=== PATIENT | male | born 1995 | race Caucasian/White ===

== ENCOUNTER 2020-02-07 16:48 | Emergency (ER) | payer BC ==
[2020-02-07 17:40] LABS: Absolute Lymphocytes (CBC) 1.3 K/uL (0.7-4.9); Basophils % 0.2 % (0-1.3); Hematocrit 43.9 % (39.6-49.0); Lymphocytes % 19.4 % (15.3-44.8); MPV 9.1 fL (7.6-11.3); RBC Red Blood Cell Count 4.87 M/uL (4.33-5.43)
[2020-02-07] MEDS ORDERED: ONDANSETRON 4 MG/2 ML VIAL ONE (17:44)
[2020-02-07] MEDS ORDERED: CIPROFLOXACIN 400mg IV 400 MG/200 ML BAG IV ONE (17:44)
[2020-02-07] MEDS ORDERED: NA CHLORIDE 0.9% 2,000 ML ONE (17:44)
[2020-02-07] MEDS ORDERED: METRONIDAZOLE 500mg IVPB 500 MG/100 ML BAG IV ONE (17:44)
[2020-02-07] MEDS ORDERED: MORPHINE 4 MG/ML SYR ONE ×2 (17:44→19:39)
[2020-02-07 17:58] LABS: Albumin 4.3 g/dL (3.4-5.0); Bilirubin Direct 0.2 mg/dL (0-0.2); Bilirubin Total 0.7 mg/dL (0.2-1.0); Potassium 3.9 mmol/L (3.5-5.1); Protein, Total 7.4 g/dL (6.4-8.2)
--- NOTE | 2020-02-07 19:26 | RAD REPORT ---
EXAM DESCRIPTION: CT - Abdomen Pelvis W Contrast - 02/07/2020 7:00 pm CLINICAL HISTORY: ABD PAINlower abdominal pain, bloody stool was COMPARISON: No comparisons TECHNIQUE: Biphasic, helical CT imaging of the abdomen and pelvis was performed following 100 ml non -ionic IV contrast. Oral contrast was given. All CT scans are performed using dose optimization technique as appropriate and may include automated exposure control or mA/KV adjustment according to patient size. FINDINGS: No suspicious findings in the lung bases. The liver, spleen, and pancreas show no suspicious findings. Gallbladder and biliary tree are also wi thout suspicious finding. Symmetric renal function is seen with no hydronephrosis or suspicious renal mass. No pyelonephritis o r acute parenchymal process. No bladder abnormalities. No adrenal abnormalities. No dilated bowel loops or bowel wall thickening. Appendix is not well visualized. No indirect evidenc e for appendicitis. Small mesenteric lymph nodes are present. Buchanan a left side colon are mildly prom inent but mostly decompressed which limits assessment. Mucosal level colitis is not excluded. No free air, free fluid or inflammatory stranding. No hernia, mass or bulky lymphadenopathy. No suspicious bony findings. IMPRESSION: No direct or indirect evidence for appendicitis. No surgically emergent findings identif iable. Small mesenteric lymph nodes are present which are nonspecific and could indicate mesenteric adenitis or enteritis. Also, buchanan of the left side colon are mildly prominent. This is probably due to decompressed state. Mild mucosal level colitis or inflammatory bowel changes cannot be excluded. No pyelonephritis or acute abnormality.
--- NOTE | 2020-02-07 19:48 | EDPHYS ---
Physician Documentation [facility] Name: Ari Moody Age: 24 yrs Sex: Male : 1995 Arrival Date: 02/07/2020 Time: 16:52 Bed 13 Private MD: ED Physician Deniz Jose HPI: 02/06 17:22 This 24 yrs old Male presents to ER via Ambulatory with complaints of kadeem Abdominal Pain, Bloody Stools. 17:22 The patient presents with abdominal pain in the lower abdomen. Onset: The kadeem symptoms/episode began/occurred this morning, today. The patient presents to the emergency department with rectal bleeding, a moderate amount. Onset: The symptoms/episode began/occurred just prior to arrival, this morning. Abdominal pain: described as crampy, dull, located in the right lower quadrant and left lower quadrant. Modifying factors: The symptoms are alleviated by remaining still, the symptoms are aggravated by nothing. Associated signs and symptoms: The patient has no apparent associated signs or symptoms. Historical: - Allergies: 17:02 No Known Allergies; ss - Home Meds: 17:02 None [Active]; ss - PMHx: 17:02 None; ss - PSHx: 17:02 None; ss - Immunization history:: Adult Immunizations up to date. - Social history:: Smoking status: Patient denies any tobacco usage or history of. - Family history:: not pertinent. ROS: 17:22 Constitutional: Negative for fever, chills, and weight loss, Eyes: Negative for injury, kadeem pain, redness, and discharge, ENT: Negative for injury, pain, and discharge, Neck: Negative for injury, pain, and swelling, Cardiovascular: Negative for chest pain, palpitations, and edema, Respiratory: Negative for shortness of breath, cough, wheezing, and pleuritic chest pain, Back: Negative for injury and pain, : Negative for injury, bleeding, discharge, and swelling, MS/Extremity: Negative for injury and deformity, Skin: Negative for injury, rash, and discoloration, Neuro: Negative for headache, weakness, numbness, tingling, and seizure, Psych: Negative for depression, anxiety, suicide ideation, homicidal ideation, and hallucinations, Allergy/Immunology: Negative for hives, rash, and allergies, Endocrine: Negative for neck swelling, polydipsia, polyuria, polyphagia, and marked weight changes, Hematologic/Lymphatic: Negative for swollen nodes, abnormal bleeding, and unusual bruising. 17:22 Abdomen/GI: Positive for abdominal pain, abdominal cramps, of the right lower quadrant and left lower quadrant. Exam: 17:22 Constitutional: This is a well developed, well nourished patient who is awake, alert, kadeem and in no acute distress. Head/Face: Normocephalic, atraumatic. Eyes: Pupils equal round and reactive to light, extra-ocular motions intact. Lids and lashes normal. Conjunctiva and sclera are non-icteric and not injected. Cornea within normal limits. Periorbital areas with no swelling, redness, or edema. ENT: Nares patent. No nasal discharge, no septal abnormalities noted. Tympanic membranes are normal and external auditory canals are clear. Oropharynx with no redness, swelling, or masses, exudates, or evidence of obstruction, uvula midline. Mucous membranes moist. Neck: Trachea midline, no thyromegaly or masses palpated, and no cervical lymphadenopathy. Supple, full range of motion without nuchal rigidity, or vertebral point tenderness. No Meningismus. Chest/axilla: Normal chest wall appearance and motion. Nontender with no deformity. No lesions are appreciated. Cardiovascular: Regular rate and rhythm with a normal S1 and S2. No gallops, murmurs, or rubs. Normal PMI, no JVD. No pulse deficits. Respiratory: Lungs have equal breath sounds bilaterally, clear to auscultation and percussion. No rales, rhonchi or wheezes noted. No increased work of breathing, no retractions or nasal flaring. Back: No spinal tenderness. No costovertebral tenderness. Full range of motion. Male : Normal genitalia with no discharge or lesions. Skin: Warm, dry with normal turgor. Normal color with no rashes, no lesions, and no evidence of cellulitis. MS/ Extremity: Pulses equal, no cyanosis. Neurovascular intact. Full, normal range of motion. Neuro: Awake and alert, GCS 15, oriented to person, place, time, and situation. Cranial nerves II-XII grossly intact. Motor strength 5/5 in all extremities. Sensory grossly intact. Cerebellar exam normal. Normal gait. Psych: Awake, alert, with orientation to person, place and time. Behavior, mood, and affect are within normal limits. 17:22 Abdomen/GI: Inspection: abdomen appears normal, Bowel sounds: normal, active, Palpation: mild abdominal tenderness, moderate abdominal tenderness, in the right lower quadrant and left lower quadrant, Liver: no appreciated palpable abnormalities, Hernia: not appreciated. Vital Signs: 17:00 BP 127 / 84; Pulse 81; Resp 15; Temp 98.2(TE); Pulse Ox 100% on R/A; Weight 70.31 kg; ss Height 5 ft. 7 in. (170.18 cm); Pain 7/10; 18:00 BP 128 / 72; Pulse 56; Resp 17 S; Pulse Ox 100% on R/A; ca1 19:31 BP 127 / 69; Pulse 54; Resp 16; Pulse Ox 100% on R/A; Pain 8/10; aa1 17:00 Body Mass Index 24.28 (70.31 kg, 170.18 cm) ss MDM: 16:56 Patient medically screened. [facility] 17:24 Data reviewed: vital signs, nurses notes, lab test result(s), radiologic studies, CT kadeem scan. 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 19:51 ED course: PMPAware reviewed. Last given codeine on 02/10/2019. pm1 02/06 17:22 Order name: Basic Metabolic Panel; Complete Time: 18:27 kadeem 02/06 17:22 Order name: CBC with Diff; Complete Time: 17:53 kadeem 02/06 17:22 Order name: Creatinine for Radiology; Complete Time: 18:27 kadeem 02/06 17:22 Order name: Hepatic Function; Complete Time: 18:27 kadeem 02/06 17:22 Order name: Lipase; Complete Time: 18:27 kadeem 02/06 17:22 Order name: Type And Screen; Complete Time: 18:27 kadeem 02/06 17:22 Order name: CT Abd/Pelvis - PO and IV Contrast; Complete Time: 19:30 kadeem 02/06 17:22 Order name: IV Saline Lock; Complete Time: 17:37 kadeem 02/06 17:22 Order name: Labs collected and sent; Complete Time: 17:37 kadeem Administered Medications: 17:39 Drug: NS 0.9% 1000 ml Route: IV; Rate: 1 bolus; Site: right antecubital; ca1 18:35 Follow up: Response: No adverse reaction; IV Status: Completed infusion ca1 17:39 Drug: Zofran (Ondansetron) 4 mg Route: IVP; Site: right antecubital; ca1 18:36 Follow up: Response: No adverse reaction; Nausea is decreased ca1 17:41 Drug: morphine 4 mg {Note: RASS - 0.} Route: IVP; Site: right antecubital; ca1 18:35 Follow up: Response: No adverse reaction; Pain is decreased; RASS: Alert and Calm (0) ca1 17:45 Drug: Flagyl 500 mg Volume: 100 ml; Route: IVPB; Rate: 200 ml/hr; Infused Over: 30 ca1 mins; Site: right antecubital; 18:34 Drug: Cipro 400 mg Volume: 200 ml; Route: IVPB; Infused Over: 60 mins; Site: right ca1 antecubital; 19:34 Follow up: IV Status: Completed infusion; IV Intake: 200ml aa1 18:34 Drug: NS 0.9% 1000 ml Route: IV; Rate: 1 bolus; Site: right antecubital; ca1 19:30 Follow up: IV Status: Completed infusion; IV Intake: 1000ml aa1 19:15 Drug: NS 0.9% 1000 ml Route: IV; Rate: 125 ml/hr; Site: right antecubital; aa1 20:04 Follow up: IV Status: Completed infusion aa1 19:35 Drug: morphine 4 mg Route: IVP; Site: right antecubital; aa1 20:03 Follow up: Response: No adverse reaction; Pain is decreased; RASS: Alert and Calm (0) aa1 19:53 Drug: Bentyl 20 mg Route: PO; aa1 20:03 Follow up: Response: No adverse reaction; Medication administered at discharge. aa1 19:53 Drug: Rocephin 1 grams Route: IV; Rate: calculated rate; Site: right antecubital; aa1 20:02 Follow up: IV Status: Completed infusion; IV Intake: 10ml aa1 Disposition: 02/07 10:35 Co-signature as Attending Physician, Deniz Jose MD I agree with the assessment and kadeem plan of care. Disposition: 02/07/20 19:47 Discharged to Home. Impression: Unspecified abdominal pain, Colitis. - Condition is Stable. - Discharge Instructions: Abdominal Pain, Adult, Colitis. - Prescriptions for Bentyl 20 mg Oral Tablet - take 1 tablet by ORAL route every 6 hours As needed; 20 tablet. Cipro 500 mg Oral Tablet - take 1 tablet by ORAL route every 12 hours for 10 days; 20 tablet. Flagyl 500 mg Oral Tablet - take 1 tablet by ORAL route every 8 hours for 10 days; 30 tablet. Tylenol- Codeine #3 300-30 mg Oral Tablet - take 2 tablets by ORAL route every 6 hours As needed; 20 tablet. - Work release form, Medication Reconciliation Form, Thank You Letter, Antibiotic Education, Prescription Opioid Use form. - Follow up: Emergency Department; When: As needed; Reason: Worsening of condition. Follow up: Mei Lopez MD; When: 2 - 3 days; Reason: Recheck today's complaints, Continuance of care, Re-evaluation by your physician. - Problem is new. - Symptoms have improved. Signatures: Dispatcher [employer] Toshia Márquez RN RN aa1 Deniz Jose MD MD cha Smirch, Shelby, RN RN ss Dmitry Whitlock, [employer] pm1 Marito, Elyse RN RN ca1 Corrections: (The following items were deleted from the chart) 02/06 20:07 19:47 02/07/2020 19:47 Discharged to Home. Impression: Unspecified abdominal pain; aa1 Colitis. Condition is Stable. Forms are Medication Reconciliation Form, Thank You Letter, Antibiotic Education, Prescription Opioid Use. Follow up: Emergency Department; When: As needed; Reason: Worsening of condition. Follow up: Mei Lopez; When: 2 - 3 days; Reason: Recheck today's complaints, Continuance of care, Re-evaluation by your physician. Problem is new. Symptoms have improved. pm1
--- NOTE | 2020-02-07 19:48 | ER ---
Nurse's Notes [facility] Name: Ari Moody Age: 24 yrs Sex: Male : 1995 Arrival Date: 02/07/2020 Time: 16:52 Bed 13 Private MD: Diagnosis: Unspecified abdominal pain;Colitis Presentation: 02/06 17:00 Chief complaint: Patient states: lower abd pain and blood stools that began today. ss Coronavirus screen: The patient has NOT traveled to a country currently being monitored by the [facility] within the last 14 days. Proceed with normal triage procedures. Ebola Screen: Patient denies exposure to infectious person. Patient denies travel to an Ebola-affected area in the 21 days before illness onset. Initial Sepsis Screen: Does the patient meet any 2 criteria? No. Patient's initial sepsis screen is negative. Does the patient have a suspected source of infection? No. Patient's initial sepsis screen is negative. Risk Assessment: Do you want to hurt yourself or someone else? Patient reports no desire to harm self or others. 17:00 Method Of Arrival: Ambulatory ss 17:00 Acuity: GAYLE 3 ss Historical: - Allergies: 17:02 No Known Allergies; ss - Home Meds: 17:02 None [Active]; ss - PMHx: 17:02 None; ss - PSHx: 17:02 None; ss - Immunization history:: Adult Immunizations up to date. - Social history:: Smoking status: Patient denies any tobacco usage or history of. - Family history:: not pertinent. Screenin:25 Abuse screen: Denies threats or abuse. Denies injuries from another. Nutritional ca1 screening: No deficits noted. Tuberculosis screening: No symptoms or risk factors identified. Fall Risk IV access (20 points). Assessment: 17:25 General: Appears in no apparent distress. comfortable, Behavior is calm, cooperative, ca1 appropriate for age. Pain: Complains of pain in suprapubic area, right lower quadrant and left lower quadrant Pain does not radiate. Pain currently is 10 out of 10 on a pain scale. Pain began this morning Is intermittent. Neuro: Level of Consciousness is awake, alert, obeys commands, Oriented to person, place, time, situation, Appropriate for age. Cardiovascular: Heart tones S1 S2 present Capillary refill < 3 seconds Patient's skin is warm and dry. Respiratory: Airway is patent Respiratory effort is even, unlabored, Breath sounds are clear bilaterally. GI: Abdomen is flat, non-distended, Bowel sounds present X 4 quads. Abd is soft X 4 quads Abdomen is tender to palpation in suprapubic area, right lower quadrant and left lower quadrant Reports diarrhea, bloody stool, since this morning. : No signs and/or symptoms were reported regarding the genitourinary system. EENT: No signs and/or symptoms were reported regarding the EENT system. Derm: Skin is intact, is healthy with good turgor, Skin is pink, warm \T\ dry. Musculoskeletal: Circulation, motion, and sensation intact. Capillary refill < 3 seconds. 18:39 Reassessment: Patient appears in no apparent distress at this time. Patient and/or ca1 family updated on plan of care and expected duration. Pain level reassessed. Patient is alert, oriented x 3, equal unlabored respirations, skin warm/dry/pink. Pending CT. 19:31 Reassessment: Patient appears in no apparent distress at this time. Patient and/or aa1 family updated on plan of care and expected duration. Pain level reassessed. Patient is alert, oriented x 3, equal unlabored respirations, skin warm/dry/pink. Pt requesting more pain medication; MEM[employer] notified. 20:05 Reassessment: Patient appears in no apparent distress at this time. Patient is alert, aa1 oriented x 3, equal unlabored respirations, skin warm/dry/pink. Discussed d/c \T\ f/u instructions with pt; denies questions or concerns at this time. Ambulatory to lobby with steady gait Patient states feeling better. Patient states symptoms have improved. Vital Signs: 17:00 BP 127 / 84; Pulse 81; Resp 15; Temp 98.2(TE); Pulse Ox 100% on R/A; Weight 70.31 kg; ss Height 5 ft. 7 in. (170.18 cm); Pain 7/10; 18:00 BP 128 / 72; Pulse 56; Resp 17 S; Pulse Ox 100% on R/A; ca1 19:31 BP 127 / 69; Pulse 54; Resp 16; Pulse Ox 100% on R/A; Pain 8/10; aa1 17:00 Body Mass Index 24.28 (70.31 kg, 170.18 cm) ED Course: 16:52 Patient arrived in ED. mr 16:56 Deniz Jose MD is Attending Physician. kadeem 16:57 Liyah Fierro, RN is Primary Nurse. ph 17:01 Triage completed. ss 17:02 Arm band placed on. ss 17:25 Patient has correct armband on for positive identification. Placed in gown. Bed in low ca1 position. Call light in reach. Side rails up X 1. Pulse ox on. NIBP on. Warm blanket given. 17:31 No provider procedures requiring assistance completed. Initial lab(s) drawn, by or, ca1 sent to lab. Inserted saline lock: 18 gauge in right antecubital area, using aseptic technique. Blood collected. 19:00 CT completed. Patient tolerated procedure well. Patient moved back from CT. bq 19:00 CT Abd/Pelvis - PO and IV Contrast In Process Unspecified. EDMS 19:09 Dmitry Whitlock NP is PHCP. pm1 19:47 Mei Lopez MD is Referral Physician. pm1 20:05 IV discontinued, intact, bleeding controlled, No redness/swelling at site. Pressure aa1 dressing applied. Administered Medications: 17:39 Drug: NS 0.9% 1000 ml Route: IV; Rate: 1 bolus; Site: right antecubital; ca1 18:35 Follow up: Response: No adverse reaction; IV Status: Completed infusion ca1 17:39 Drug: Zofran (Ondansetron) 4 mg Route: IVP; Site: right antecubital; ca1 18:36 Follow up: Response: No adverse reaction; Nausea is decreased ca1 17:41 Drug: morphine 4 mg {Note: RASS - 0.} Route: IVP; Site: right antecubital; ca1 18:35 Follow up: Response: No adverse reaction; Pain is decreased; RASS: Alert and Calm (0) ca1 17:45 Drug: Flagyl 500 mg Volume: 100 ml; Route: IVPB; Rate: 200 ml/hr; Infused Over: 30 ca1 mins; Site: right antecubital; 18:34 Drug: Cipro 400 mg Volume: 200 ml; Route: IVPB; Infused Over: 60 mins; Site: right ca1 antecubital; 19:34 Follow up: IV Status: Completed infusion; IV Intake: 200ml aa1 18:34 Drug: NS 0.9% 1000 ml Route: IV; Rate: 1 bolus; Site: right antecubital; ca1 19:30 Follow up: IV Status: Completed infusion; IV Intake: 1000ml aa1 19:15 Drug: NS 0.9% 1000 ml Route: IV; Rate: 125 ml/hr; Site: right antecubital; aa1 20:04 Follow up: IV Status: Completed infusion aa1 19:35 Drug: morphine 4 mg Route: IVP; Site: right antecubital; aa1 20:03 Follow up: Response: No adverse reaction; Pain is decreased; RASS: Alert and Calm (0) aa1 19:53 Drug: Bentyl 20 mg Route: PO; aa1 20:03 Follow up: Response: No adverse reaction; Medication administered at discharge. aa1 19:53 Drug: Rocephin 1 grams Route: IV; Rate: calculated rate; Site: right antecubital; aa1 20:02 Follow up: IV Status: Completed infusion; IV Intake: 10ml aa1 Intake: 19:30 IV: 1000ml; Total: 1000ml. aa1 19:34 IV: 200ml; Total: 1200ml. aa1 20:02 IV: 10ml; Total: 1210ml. aa1 Outcome: 19:47 Discharge ordered by . pm1 20:05 Discharged to home ambulatory, with significant other. aa1 20:05 Condition: good 20:05 Discharge instructions given to patient, significant other, Instructed on discharge instructions, follow up and referral plans. medication usage, Demonstrated understanding of instructions, follow-up care, medications, Prescriptions given X 4. 20:07 Patient left the ED. aa1 Signatures: Dispatcher [employer] EDMS Toshia Fuentes RN RN aa1 Deniz Jose MD MD cha Rivera, Mary mr Tiffanie Thompson Shelby, RN RN Liyah Fierro RN RN ph Marinas, Patrick, [employer] pm1 Elyse Devi RN RN ca1
[2020-02-07] MEDS ORDERED: DICYCLOMINE HCL 10 MG CAP ONE (19:52)
[2020-02-07] MEDS ORDERED: CEFTRIAXONE/SWI 1gm 1 GM/10 ML SYR ONE (19:52)
[2020-02-07 20:39] VITALS: O2SAT 100
[2020-02-07 20:42] VITALS: BP 127/69
[2020-02-07 20:46] VITALS: TEMP 98.4
== END 2020-02-07 20:07 | disposition home or self-care (01) ==
LOC: ER 16:48
DX: K52.9 Noninfective gastroenteritis and colitis, unspecified (principal)
CPT/HCPCS: 96365; 96361; 85025; 80048; 36415; 86900; 86850; 86901; 80076; 83690; 74177; 96375; 99284; Q9967; J0696; J7030; J2405; J0744

== ENCOUNTER 2024-09-12 11:19 | Emergency (ER) | payer BC ==
[2024-09-12] MEDS ORDERED: ONDANSETRON 4 MG/2 ML VIAL ONE (11:54)
[2024-09-12] MEDS ORDERED: NA CHLORIDE 0.9% 1,000 ML ONE (11:54)
[2024-09-12] MEDS ORDERED: FAMOTIDINE 20 MG/2 ML VIAL IV ONE (11:54)
[2024-09-12 12:10] LABS: Specific Gravity 1.017 (1.005-1.030); Urine Bilirubin NEGATIVE (Negative); Urine Blood Negative (Negative); Urine Clarity Clear (Clear); Urine Color Light-Yellow (Yellow); Urine Glucose NEGATIVE (Negative); Urine Ketones NEGATIVE (Negative); Urine Microscopic Reflex YN NO UMIC; Urine Nitrite NEGATIVE (Negative); Urine Protein NEGATIVE (Negative); Urine Urobilinogen Normal (Normal)
[2024-09-12 12:10] LABS: Absolute Eosinophils 0.1 K/uL (0-0.5); Absolute Lymphocytes (CBC) 1.4 K/uL (0.7-4.9); Absolute Monocytes 0.4 K/uL (0.1-1.3); Absolute Neutrophil 2.8 K/uL (1.8-8.0); Basophils % 0.3 % (0-1.3); Eosinophils % 2.2 % (0-4.4); Hematocrit 41.7 % (39.6-49.0); Lymphocytes % 29.7 % (15.3-44.8); MCH 30.9 pg (27.0-35.0); MCHC 33.6 g/dL (32.0-36.0); MCV 91.8 fL (80-100); MPV 8.7 fL (7.6-11.3); Neutrophils % 58.8 % (41.7-73.7); Platelets 175 thou/uL (152-406); RBC Red Blood Cell Count 4.55 M/uL (4.33-5.43); Red Cell Distribution Width 13.2 % (12.1-15.2)
[2024-09-12 12:13] LABS: PT Prothrombin Time 12.4 SECONDS (9.4-12.5); Protime INR 1.11
[2024-09-12 12:26] LABS: Albumin 4.3 g/dL (3.4-5.0); Albumin/Globulin Ratio 1.3 (1.1-1.8); Anion Gap 6.7 mEq/L (5.0-15.0); Bilirubin Total 0.5 mg/dL (0.2-1.0); Globulin 3.2 g/dL (2.3-3.5); Potassium 3.7 mEq/L (3.5-5.1); Protein, Total 7.5 g/dL (6.4-8.2)
--- NOTE | 2024-09-12 13:24 | RAD REPORT ---
EXAMINATION: CT ABDOMEN AND PELVIS WITH CONTRAST CLINICAL INDICATION: Abdominal pain TECHNIQUE: CT abdomen and pelvis was performed, after the administration of 100 cc Isovue-300.. Sagit anu and coronal reconstructions were obtained. One or more of the following dose reduction techniques were used: Automated exposure control, adjustment of the mA and kV according to patient si ze, and iterative reconstruction. Unless otherwise specified, incidental findings do not require dedicated imaging follow-up. [id number]. Oral contrast was not given which limits evaluation of bowel and appendix. COMPARISON: 2019 FINDINGS: Liver, spleen, pancreas, adrenals and kidneys appear unremarkable No evidence of diverticulitis. The appendix is not seen. No stranding adjacent to the cecum Moderate amount of stool within the colon : IMPRESSION: Moderate amount of stool within the colon.
--- NOTE | 2024-09-12 14:13 | ER ---
Nurse's Notes [facility] Name: Ari Moody Age: 28 yrs Sex: Male : 1995 Arrival Date: 09/12/2024 Time: 11:19 Bed 14 Private MD: Diagnosis: Low back pain;Dehydration;Hypoglycemia, unspecified;Constipation Presentation: 09/12 11:38 Chief complaint: Patient states: my kidneys are hurting and my urine is dark since last iw Saturday. Coronavirus screen: At this time, the client does not indicate any symptoms associated with coronavirus-19. Ebola Screen: No symptoms or risks identified at this time. Initial Sepsis Screen: Does the patient meet any 2 criteria? No. Patient's initial sepsis screen is negative. Does the patient have a suspected source of infection? No. Patient's initial sepsis screen is negative. Risk Assessment: Do you want to hurt yourself or someone else? Patient reports no desire to harm self or others. Onset of symptoms was September 05, 2024. 11:38 Method Of Arrival: Ambulatory iw 11:38 Acuity: GAYLE 3 iw Historical: - Allergies: 11:39 No Known Allergies; iw - Home Meds: 11:39 None [Active]; iw - PMHx: 11:39 None; iw - PSHx: 11:39 None; iw - Immunization history:: Adult Immunizations unknown. - Infectious Disease History:: Denies. - Social history:: Smoking status: Reported history of juuling and/or vaping. - Family history:: not pertinent. Screenin:06 [facility] ED Fall Risk Assessment (Adult) History of falling in the last 3 months, mb9 including since admission No falls in past 3 months (0 pts) Confusion or Disorientation No (0 pts) Intoxicated or Sedated No (0 pts) Impaired Gait No (0 pts) Mobility Assist Device Used No (0 pt) Altered Elimination No (0 pt) Score/Fall Risk Level 0 - 2 = Low Risk. Abuse screen: Denies threats or abuse. Nutritional screening: No deficits noted. Tuberculosis screening: No symptoms or risk factors identified. Assessment: 12:05 General: Appears in no apparent distress. Behavior is calm, cooperative. Pain: mb9 Complains of pain in back Pain radiates to bilateral flanks Pain currently is 0 out of 10 on a pain scale. Quality of pain is described as throbbing, Pain began 2-3 days ago. Is continuous. Neuro: Herzog Agitation-Sedation Scale (RASS): 0 - Alert and Calm Level of Consciousness is awake, alert, obeys commands, Oriented to person, place, time, situation, Appropriate for age. Cardiovascular: Patient's skin is warm and dry. Respiratory: Airway is patent Respiratory effort is even, unlabored, Respiratory pattern is regular, symmetrical. GI: Abdomen is flat, non-distended, Bowel sounds present X 4 quads. Abd is soft and non tender X 4 quads. : Reports dark urine. EENT: No signs and/or symptoms were reported regarding the EENT system. Derm: Skin is pink, warm \T\ dry. Musculoskeletal: Range of motion: intact in all extremities. 13:35 Reassessment: No changes from previously documented assessment. Patient and/or family mb9 updated on plan of care and expected duration. Pain level reassessed. Patient is alert, oriented x 3, equal unlabored respirations, skin warm/dry/pink. Vital Signs: 11:38 BP 129 / 76; Pulse 69; Resp 16; Temp 98.5; Pulse Ox 100% on R/A; Weight 72.57 kg; iw Height 5 ft. 7 in. ; Pain 4/10; 13:01 BP 133 / 68; Pulse 71; Resp 16; Pulse Ox 100% on R/A; mb9 14:17 BP 125 / 75; Pulse 70; Resp 16; Pulse Ox 100% on R/A; mb9 11:38 Body Mass Index 25.06 (72.57 kg, 170.18 cm) iw 11:38 Pain Scale: Adult iw ED Course: 11:23 Patient arrived in ED. im 11:29 Deniz Jose MD is Attending Physician. kadeem 11:39 Triage completed. iw 11:50 Maria Ines Zhang RN is Primary Nurse. mb9 11:51 Arm band placed on. mb9 12:05 Initial lab(s) drawn, by me, sent to lab. Urine collected: clean catch specimen, clear. mb9 Inserted saline lock: 20 gauge in right antecubital area, using aseptic technique. Blood collected. Flushed with 10 mL NS. 12:07 Placed in gown. Bed in low position. Call light in reach. Side rails up X 1. Provided mb9 Education on: press call light if needing anything. Client placed on continuous cardiac and pulse oximetry monitoring. NIBP monitoring applied. 12:08 CBC with Diff Sent. mb9 12:08 CMP Sent. mb9 12:08 Lipase Sent. mb9 12:08 Urinalysis w/ reflexes Sent. mb9 12:08 PT-INR Sent. mb9 13:14 CT Abd/Pelvis - IV Contrast Only In Process Unspecified. EDMS 13:53 No provider procedures requiring assistance completed. mb9 14:00 IV discontinued, intact, bleeding controlled, No redness/swelling at site. Pressure mb9 dressing applied. Administered Medications: 12:00 Drug: Ondansetron IVP 4 mg IVP once; over 2 minutes Route: IVP; Site: right antecubital;mb9 13:21 Follow up: Response: No adverse reaction mb9 12:07 Drug: Famotidine IVP 20 mg IVP once; dilute with 10 mL 0.9% NaCl; give over 2 minutes mb9 Route: IVP; Site: right antecubital; 13:21 Follow up: Response: No adverse reaction mb9 12:07 Drug: NS 0.9% IV 1000 ml IV at 1 bolus Per protocol; to be given as a bolus over 60 mb9 minutes Route: IV; Rate: 1 bolus; Site: right antecubital; 13:21 Follow up: Response: No adverse reaction; IV Status: Completed infusion mb9 Medication: 12:07 VIS not applicable for this client. mb9 Outcome: 14:13 Discharge ordered by MD. uqan 14:17 Discharged to home ambulatory, mb9 14:17 Condition: stable 14:17 Discharge instructions given to patient, Instructed on discharge instructions, follow up and referral plans. Demonstrated understanding of instructions, follow-up care, 14:17 Patient left the ED. mb9 Signatures: Dispatcher [employer] EDMS Deniz Jose MD MD cha Williams, Irene RN LALO Zhang, Maria Ines Rodriguez RN RN Nandini Raphael Corrections: (The following items were deleted from the chart) 11:39 11:38 BP 129 / 76; Pulse 69bpm; Resp 16bpm; Pulse Ox 100% RA; Temp 98.5F; Pain 4/10, iw Adult; iw
--- NOTE | 2024-09-12 14:13 | EDPHYS ---
Physician Documentation [facility] Name: Ari Moody Age: 28 yrs Sex: Male : 1995 Arrival Date: 09/12/2024 Time: :19 Bed 14 Private MD: ED Physician Deniz Jose HPI: 09/12 14:09 This 28 yrs old Male presents to ER via Ambulatory with complaints of Low kadeem Back Pain, Urinary Problem. 14:09 The patient presents with pain that is acute, with no known mechanism of injury. The kadeem symptoms are located in the low back, left low back, left mid back, right mid back and right low back. The pain does not radiate. The problem was sustained from unknown cause. Modifying factors: The patient symptoms are alleviated by nothing, the patient symptoms are aggravated by nothing. Severity of symptoms: At their worst the symptoms were mild, in the emergency department the symptoms are unchanged. Historical: - Allergies: 11:39 No Known Allergies; iw - Home Meds: 11:39 None [Active]; iw - PMHx: 11:39 None; iw - PSHx: 11:39 None; iw - Immunization history:: Adult Immunizations unknown. - Infectious Disease History:: Denies. - Social history:: Smoking status: Reported history of juuling and/or vaping. - Family history:: not pertinent. ROS: 14:09 Constitutional: Negative for fever, chills, and weight loss, Eyes: Negative for injury, kadeem pain, redness, and discharge, ENT: Negative for injury, pain, and discharge, Neck: Negative for injury, pain, and swelling, Cardiovascular: Negative for chest pain, palpitations, and edema, Respiratory: Negative for shortness of breath, cough, wheezing, and pleuritic chest pain, Abdomen/GI: Negative for abdominal pain, nausea, vomiting, diarrhea, and constipation, : Negative for injury, bleeding, discharge, and swelling, MS/Extremity: Negative for injury and deformity, Skin: Negative for injury, rash, and discoloration, Neuro: Negative for headache, weakness, numbness, tingling, and seizure, Psych: Negative for depression, anxiety, suicide ideation, homicidal ideation, and hallucinations, Allergy/Immunology: Negative for hives, rash, and allergies, Endocrine: Negative for neck swelling, polydipsia, polyuria, polyphagia, and marked weight changes, Hematologic/Lymphatic: Negative for swollen nodes, abnormal bleeding, and unusual bruising, 14:09 Back: Positive for pain at rest, Exam: 14:09 Constitutional: This is a well developed, well nourished patient who is awake, alert, kadeem and in no acute distress. Head/Face: Normocephalic, atraumatic. Eyes: Pupils equal round and reactive to light, extra-ocular motions intact. Lids and lashes normal. Conjunctiva and sclera are non-icteric and not injected. Cornea within normal limits. Periorbital areas with no swelling, redness, or edema. ENT: Nares patent. No nasal discharge, no septal abnormalities noted. Tympanic membranes are normal and external auditory canals are clear. Oropharynx with no redness, swelling, or masses, exudates, or evidence of obstruction, uvula midline. Mucous membranes moist. Neck: Trachea midline, no thyromegaly or masses palpated, and no cervical lymphadenopathy. Supple, full range of motion without nuchal rigidity, or vertebral point tenderness. No Meningismus. Chest/axilla: Normal chest wall appearance and motion. Nontender with no deformity. No lesions are appreciated. Cardiovascular: Regular rate and rhythm with a normal S1 and S2. No gallops, murmurs, or rubs. Normal PMI, no JVD. No pulse deficits. Respiratory: Lungs have equal breath sounds bilaterally, clear to auscultation and percussion. No rales, rhonchi or wheezes noted. No increased work of breathing, no retractions or nasal flaring. Abdomen/GI: Soft, non-tender, with normal bowel sounds. No distension or tympany. No guarding or rebound. No evidence of tenderness throughout. Back: No spinal tenderness. No costovertebral tenderness. Full range of motion. Male : Normal genitalia with no discharge or lesions. Skin: Warm, dry with normal turgor. Normal color with no rashes, no lesions, and no evidence of cellulitis. MS/ Extremity: Pulses equal, no cyanosis. Neurovascular intact. Full, normal range of motion. Neuro: Awake and alert, GCS 15, oriented to person, place, time, and situation. Cranial nerves II-XII grossly intact. Motor strength 5/5 in all extremities. Sensory grossly intact. Cerebellar exam normal. Normal gait. Psych: Awake, alert, with orientation to person, place and time. Behavior, mood, and affect are within normal limits. Vital Signs: 11:38 BP 129 / 76; Pulse 69; Resp 16; Temp 98.5; Pulse Ox 100% on R/A; Weight 72.57 kg; iw Height 5 ft. 7 in. ; Pain 4/10; 13:01 BP 133 / 68; Pulse 71; Resp 16; Pulse Ox 100% on R/A; mb9 14:17 BP 125 / 75; Pulse 70; Resp 16; Pulse Ox 100% on R/A; mb9 11:38 Body Mass Index 25.06 (72.57 kg, 170.18 cm) iw 11:38 Pain Scale: Adult iw MDM: 11:30 Medical Screening Exam initiated kadeem 14:11 Differential diagnosis: arthritis, strain, sciatica, contusion, Herniated disc UTI. [facility] Data reviewed: vital signs, nurses notes, lab test result(s), radiologic studies, CT scan. Consideration of Admission/Observation Escalation of care including admission/observation considered. I considered the following discharge prescriptions or medication management in the emergency department Medications were administered in the Emergency Department. See MAR. Independent interpretation of the following test(s) in the Emergency Department CT Scan: My interpretation is ct a/p. Test considered but Not performed: EKG: no ekg. Historians other than the Patient: pt well informed. Care significantly affected by the following chronic conditions: none. 09/12 11:50 Order name: CBC with Diff; Complete Time: 13:43 [facility] 09/12 11:50 Order name: CMP; Complete Time: 13:43 [facility] 09/12 11:50 Order name: Lipase; Complete Time: 13:43 [facility] 09/12 11:50 Order name: Urinalysis w/ reflexes; Complete Time: 13:43 [facility] 09/12 11:50 Order name: PT-INR; Complete Time: 13:43 [facility] 09/12 11:50 Order name: CT Abd/Pelvis - IV Contrast Only; Complete Time: 13:43 [facility] 09/12 11:50 Order name: IV Saline Lock; Complete Time: 12:07 [facility] 09/12 11:50 Order name: Labs collected and sent; Complete Time: 12:07 [facility] 09/12 14:09 Order name: PO challenge: juice; Complete Time: 14:10 kadeem Administered Medications: 12:00 Drug: Ondansetron IVP 4 mg IVP once; over 2 minutes Route: IVP; Site: right antecubital;mb9 13:21 Follow up: Response: No adverse reaction mb9 12:07 Drug: Famotidine IVP 20 mg IVP once; dilute with 10 mL 0.9% NaCl; give over 2 minutes mb9 Route: IVP; Site: right antecubital; 13:21 Follow up: Response: No adverse reaction mb9 12:07 Drug: NS 0.9% IV 1000 ml IV at 1 bolus Per protocol; to be given as a bolus over 60 mb9 minutes Route: IV; Rate: 1 bolus; Site: right antecubital; 13:21 Follow up: Response: No adverse reaction; IV Status: Completed infusion mb9 Disposition Summary: 09/12/24 14:13 Discharge Ordered Notes: Location: Home kadeem Problem: new kadeem Symptoms: have improved kadeem Condition: Stable kadeem Diagnosis - Low back pain kadeem - Dehydration kadeem - Hypoglycemia, unspecified kadeem - Constipation kadeem Followup: kadeem - With: Private Physician - When: 2 - 3 days - Reason: Recheck today's complaints, Continuance of care, Re-evaluation by your physician Discharge Instructions: - Acute Back Pain, Adult kadeem - Constipation, Adult kadeem - Dehydration, Adult kadeem - Hypoglycemia kadeem - Musculoskeletal Pain kadeem - Constipation, Adult, [id number] kadeem - Discharge Summary Sheet mb9 Forms: - Medication Reconciliation Form kadeem - Antibiotic Education kadeem - Prescription Opioid Use kadeem - Patient Portal Instructions kadeem - Leadership Thank You Letter kadeem - Work release form mb9 Signatures: Dispatcher [employer] Deniz Portillo MD MD cha Williams, Irene, RN RN iw Wilkerson, Mary Beth, RN RN mb9 Corrections: (The following items were deleted from the chart) 11:50 11:50 CBC+H.LAB.BRZ ordered. EDMS EDMS 11:50 11:50 COMPREHENSIVE METABOLIC PANEL+C.LAB.BRZ ordered. EDMS EDMS 11:50 11:50 LIPASE+C.LAB.BRZ ordered. EDMS EDMS 11:50 11:50 Urinalysis+U.LAB.BRZ ordered. EDMS EDMS 11:50 11:50 PROTIME (+INR)+COAG.LAB.BRZ ordered. EDMS EDMS 11:50 11:50 Abdomen Pelvis W Con+CT.RAD.BRZ ordered. EDMS EDMS
[2024-09-12 17:25] VITALS: TEMP 98.5; O2SAT 100
[2024-09-12 17:27] VITALS: BP 125/75
== END 2024-09-12 14:17 | disposition home or self-care (01) ==
LOC: ER 11:19
DX: M54.50 Low back pain, unspecified (principal); E86.0 Dehydration; E16.2 Hypoglycemia, unspecified; K59.00 Constipation, unspecified
CPT/HCPCS: 96361; 85025; 36415; 85610; 81003; 83690; 80053; 74177; 96375; 96374; 99284; Q9967; J2405; J7030